=== PATIENT | female | born 1955 | race Caucasian/White ===

== ENCOUNTER → 2016-11-22 | Outpatient (CLI) | payer MEDICARE, OTHER ==
--- NOTE | 2016-11-22 11:03 | KCIC ---
Bilateral digital screening mammograms with CAD: HISTORY Routine screening. COMPARISON No previous examinations for comparison. Baseline exam. FINDINGS Breast density category A. The skin and nipples show no abnormalities. No abnormal lymph nodes are seen in the axilla. The breast parenchyma is predominately fatty. There is a 1.8 centimeter nodular lesion in the 12 o'clock position of the right breast approximately 4.5 centimeters from the nipple. Further evaluation with ultrasound is recommended. There are no other dominant masses, suspicious calcifications or architectural distortions. IMPRESSION 1.8 centimeter nodule in the 12 o'clock position of the right breast approximately 4.5 centimeters from the nipple. Recommend further evaluation with ultrasound. This study was interpreted with the benefit of Computerized Aided Detection (CAD). Mammography is not 100% sensitive in detecting breast cancer. Therefore, a self breast exam and a clinical breast exam are very important. A negative mammogram does not negate a clinically suspicious finding and should not result in a delay in biopsying a clinically suspicious abnormality. BI-RADS category 0: Incomplete. Ultrasound followup is recommended. This patient's information has been entered into a reminder system for the patient to be notified with the results of this examination and a target date for her next mammograms. Electronically signed by: Jennifer Finley MD (November 22, 2016 11:01:42)
== END | disposition home or self-care (01) ==
LOC: KCIC MAMMO 09:14
PROVIDERS: ATTEND Family Medicine
DX: Z12.31 Encounter for screening mammogram for malignant neoplasm of breast (principal)
CPT/HCPCS: G0202; 77067

== ENCOUNTER → 2016-12-05 | Outpatient (CLI) | payer MEDICARE, OTHER ==
--- NOTE | 2016-12-05 12:49 | RAD ---
Indication abnormality seen on mammography. Targeted ultrasound to the right breast was performed. Note is made of the mammogram 11/22/2016. At the 12:00 position of the breast 4 cm from the nipple is a hypoechoic slightly shadowing mass. It is reasonably well defined. It does not have the features of a simple cyst. The etiology is unclear. Ultrasound-guided biopsy is recommended.) The recommendation for biopsy was to be communicated by the technologist performing the examination to the patient.) A benign-appearing lymph node was additionally noted in the right axilla. IMPRESSION: 1.3 cm mass corresponding to the mammographic abnormality. Ultrasound-guided biopsy recommended. BI-RADS 4. Suspicious. Ultrasound-guided biopsy recommended
== END | disposition home or self-care (01) ==
LOC: KCIC US 12:14
PROVIDERS: ATTEND Family Medicine
DX: R92.8 Other abnormal and inconclusive findings on diagnostic imaging of breast (principal)
CPT/HCPCS: 76641

== ENCOUNTER → 2016-12-26 | Outpatient (CLI) | payer MEDICARE, OTHER ==
[~2016-12-26] VITALS: Ht 167.6 cm; Wt 95.3 kg
[~2016-12-26] MED LIST: GLIM4TAB2 PO; HYDR12.58 PO; INSU100I13 SQ; METF500T4 PO
[2016-12-26 10:37] VITALS: BP 166/166
--- NOTE | 2016-12-26 13:30 | RAD ---
Ultrasound-guided biopsy of a mass within the right breast to include post procedure right mammogram 12/16/2016 Clinical history: 1.3 cm hypoechoic mass in the 12:00 position of the right breast. Ultrasound-guided biopsy was recommended. Technique: After the risks and benefits of the procedure were explained to the patient, written informed consent was obtained. Real-time scanning of the upper breast was performed. A 1.3 cm irregular hypoechoic mass is seen within the right breast at 3 12:00 position. An area was marked on the skin corresponding this lesion. This area was then prepped and draped in sterile fashion. 1% lidocaine was used as a local anesthetic. Under sonographic guidance a 13-gauge coaxial needle was advanced to the periphery of this mass. 4 core biopsies were obtained using a 14-gauge Bard biopsy instrument. These samples were placed in formalin and submitted to pathology for further evaluation. A localizing clip was then deployed through the guiding needle into the lesion. Confirmation of localizing clip position was confirmed with postprocedure MLO and CC mammograms of the right breast. Following placement of the clip, the coaxial needle was removed and hemostasis was a at the puncture site. A sterile Band-Aid was placed on the skin puncture site. The patient tolerated the procedure well and there were no immediate complications. Impression: Technically successful ultrasound guided biopsy of mass within the right breast as outlined above.
--- NOTE | 2016-12-27 11:36 | PATHOLOGY ---
PATHOLOGY REPORT * * * * * * * * FINAL DIAGNOSIS: Breast tissue, right breast mass core biopsy: - Fibroadenoma. COMMENT: There is no evidence of malignancy. (JPM:mml; d/t: 12/27/2016) REPORT ELECTRONICALLY SIGNED BY: Eric Gtz M.D. DATE/TIME: 12/27/2016 11:36 * * * * * * * * GROSS PATHOLOGY: Received in formalin labeled "Rachel Chavarria, right breast," are multiple needle cores of yellow-sandesron fibrofatty tissue measuring 0.7 x 0.5 x 0.2 cm in aggregate dimensions. The tissue is submitted in its entirety in cassette A1. The cold ischemic time is 5 minutes. The total formalin fixation time is 10 hours and 30 minutes. (JPM; 12/26/16) INITIAL CPT CODE(S): A; 19442 Professional services [place] [place] [address] Technical services performed by [facility] at [address] [place] [address]. SPECIMEN(S) RECEIVED: A.Right breast mass CLINICAL HISTORY: Right breast mass PATIENT: RACHEL CHAVARRIA /AGE: 511/17/1955 (Age: 61) PATIENT #: [id number] ALT CASE #: SPECIMEN COLLECTION DATE: 12/26/2016 SPECIMEN RECEIVED DATE: 12/26/2016 [facility] - [address] [place] [address] - PHONE: [phone] * * * END OF REPORT * * *
== END | disposition home or self-care (01) ==
LOC: US 10:09
PROVIDERS: ATTEND Family Medicine
DX: R92.8 Other abnormal and inconclusive findings on diagnostic imaging of breast (principal); N63 Unspecified lump in breast
CPT/HCPCS: 76942; C1713; G0206; 77065